=== PATIENT | female | born 1935 | race Caucasian/White ===

== ENCOUNTER 2020-12-04 16:16 | Emergency (ER) | payer MEDICARE, OTHER ==
--- NOTE | 2020-12-04 16:33 | EDM.PDOC ---
ED HPI GENERAL MEDICAL PROBLEM - General Chief Complaint: Abdominal Pain Stated Complaint: Abdominal Pain Time Seen by Provider: 12/04/20 16:20 Source of Information: Reports: Patient History Limitations: Reports: No Limitations - History of Present Illness INITIAL COMMENTS - FREE TEXT/NARRATIVE: She presents to the emergency department complaining of 9/10 abdominal pain. Pain localizes to the lower quadrants bilaterally does radiate into her lower back. Pain started suddenly about two and a half hours prior to arrival. She did take some ibuprofen and does not feel that it helped. Normal bowel movement this morning. No history of blood in the stool. No nausea or vomiting. No fever or chills. Pain does not change with position. No recent change in her diet. No history of previous similar problems. She takes thyroid replacement. No other regular medications. She denies any other significant underlying medical problems. She denies any recent illness. - Related Data Allergies Allergy/AdvReac Type Severity Reaction Status Date / Time Sulfa (Sulfonamide Allergy Other Verified 10/05/17 13:06 Antibiotics) ED ROS GENERAL - Review of Systems Review Of Systems: See Below Constitutional: Denies: Fever, Chills HEENT: Denies: Nose Pain, Rhinitis, Sinus Problem, Throat Swelling Respiratory: Denies: Shortness of Breath, Cough Cardiovascular: Denies: Chest Pain, Palpitations GI/Abdominal: Reports: Abdominal Pain. Denies: Black Stool, Bloody Stool, Constipation, Diarrhea, Nausea, Vomiting : Denies: Discharge, Dysuria, Flank Pain, Frequency, Hematuria Neurological: Denies: Confusion, Dizziness Psychiatric: Denies: Anxiety, Depression ED EXAM, GENERAL - Physical Exam Exam: See Below Exam Limited By: No Limitations General Appearance: Alert, WD/WN, Mild Distress Nose: Normal Inspection, Normal Mucosa Throat/Mouth: Normal Inspection, Normal Lips, Normal Oropharynx Head: Atraumatic, Normocephalic Neck: Normal Inspection. No: Lymphadenopathy (L), Lymphadenopathy (R) Respiratory/Chest: No Respiratory Distress, Lungs Clear, Normal Breath Sounds Cardiovascular: Regular Rate, Rhythm, No Murmur GI/Abdominal: Other (Mild distention. Bowel sounds are present but decreased throughout.). No: Guarding, Rebound, Tender Neurological: Alert, Oriented Psychiatric: Normal Affect, Normal Mood Course - Vital Signs Text/Narrative:: Patient continued to have significant pain throughout her stay in the emergency department. She was given 2 doses of morphine 4 mg IV with inadequate control and then 0.5 mg of Dilaudid with improved control. CT scan was done and showed a probable small bowel instruction. Will transfer to [facility] for surgical evaluation. Last Recorded V/S: Last Vital Signs Temp 36.4 C 12/04/20 16:30 Pulse 71 12/04/20 18:03 Resp 18 12/04/20 18:03 BP 189/71 H 12/04/20 18:03 Pulse Ox 98 12/04/20 18:03 - Orders/Labs/Meds Orders: Active Orders 24 hr Category Date Time Status Abdomen Pelvis w Cont [CT] Stat Exams 12/04/20 16:30 Taken Sodium Chloride 0.9% [Normal Saline] 1,000 ml Med 12/04/20 17:15 Active IV ASDIRECTED Medication Orders Sodium Chloride (Normal Saline) 1,000 mls @ 999 mls/hr IV ASDIRECTED PAT Last Admin: 12/04/20 17:15 Dose: 999 mls/hr Documented by: KEISHA Labs: Laboratory Tests 12/04/20 12/04/20 12/04/20 Range/Units 16:40 16:40 18:10 WBC 8.5 (4.0-10.2) K/uL RBC 4.91 (3.77-5.09) M/uL Hgb 14.7 D (11.7-15.5) g/dL Hct 43.4 (34.0-46.0) % MCV 88.4 (84.0-98.0) fL MCH 29.9 (28.2-33.3) pg MCHC 33.9 (31.7-36.0) g/dL RDW 14.0 (11.2-14.1) % Plt Count 224 (150-350) K/uL Neut % (Auto) 81.3 H (45.0-80.0) % Lymph % (Auto) 12.4 (10.0-50.0) % [place] % (Auto) 5.6 (2.0-14.0) % Eos % (Auto) 0.5 (0.0-5.0) % Baso % (Auto) 0.2 (0.0-2.0) % Neut # (Auto) 6.94 (1.40-7.00) K/uL Lymph # (Auto) 1.06 (0.50-3.50) K/uL [place] # (Auto) 0.48 (0.00-1.00) K/uL Eos # (Auto) 0.04 (0.00-0.50) K/uL Baso # (Auto) 0.02 (0.00-0.20) K/uL Sodium 138 (136-145) mmol/L Potassium 3.9 (3.5-5.1) mmol/L Chloride 103 (98-107) mmol/L Carbon Dioxide 27.3 (21.0-32.0) mmol/L Anion Gap 7.7 (7-15) meq/L BUN 19 H (7-18) mg/dL Creatinine 0.86 (0.51-1.17) mg/dL Est Cr Clr Drug Dosing TNP Estimated GFR (MDRD) > 60 mL/min Glucose 157 H (70-99) mg/dL Calcium 8.6 (8.5-10.1) mg/dL Total Bilirubin 0.5 (0.2-1.0) mg/dL AST 24 (15-37) U/L ALT 20 (12-78) U/L Alkaline Phosphatase 61 (46-116) IU/L Total Protein 7.1 (6.4-8.2) g/dL Albumin 3.6 (3.4-5.0) g/dL Amylase 46 (25-115) U/L Lipase 91 (73-393) U/L Specimen Type Urinblad Urine Color Yellow Urine Appearance Clear Urine pH 7.5 (5.0-9.0) Ur Specific [place] 1.020 (1.005-1.030) Urine Protein Negative (NEGATIVE) mg/dL Urine Glucose (UA) 100 H (NEGATIVE) mg/dL Urine Ketones Negative (NEGATIVE) mg/dL Urine Occult Blood Trace-intact H (NEGATIVE) Urine Nitrite Negative (NEGATIVE) Urine Bilirubin Negative (NEGATIVE) Urine Urobilinogen 0.2 (0.2-1.0) E.U./dL Ur Leukocyte Esterase Negative (NEGATIVE) Urine RBC 0-5 /HPF Urine WBC 0-5 /HPF Ur Epithelial Cells Rare /LPF Urine Bacteria Rare (NONE TO FEW) /HPF Meds: Medications Generic Name Dose Route Start Last Admin Trade Name Freq PRN Reason Stop Dose Admin Sodium Chloride 1,000 mls @ 999 mls/hr 12/04/20 17:15 12/04/20 17:15 Normal Saline IV 999 mls/hr ASDIRECTED PAT Administration Discontinued Medications Generic Name Dose Route Start Last Admin Trade Name Lyndon PRN Reason Stop Dose Admin Hydromorphone HCl 0.5 mg 12/04/20 17:28 12/04/20 17:29 Hydromorphone 0.5 Mg/0.5 Ml Syringe IM 12/04/20 17:29 0.5 mg ONETIME ONE Administration Iopamidol 100 ml 12/04/20 17:04 12/04/20 17:52 Iopamidol 612 Mg/Ml 100 Ml Bottle IVPUSH 12/04/20 17:05 100 ml ONETIME STA Administration Iopamidol Confirm 12/04/20 17:11 Iopamidol 612 Mg/Ml 100 Ml Bottle Administered 12/04/20 17:12 Dose 100 ml .ROUTE .STK-MED ONE Morphine Sulfate 4 mg 12/04/20 16:49 12/04/20 17:19 Morphine 4 Mg/Ml Syringe IVPUSH 12/04/20 16:50 4 mg ONETIME ONE Administration Morphine Sulfate 4 mg 12/04/20 17:12 12/04/20 17:16 Morphine 4 Mg/Ml Syringe IVPUSH 12/04/20 17:13 4 mg ONETIME ONE Administration Ondansetron HCl Confirm 12/04/20 16:59 12/04/20 17:05 Ondansetron 4 Mg/2 Ml Sdv Administered 12/04/20 17:00 4 mg Dose Administration 4 mg .ROUTE .STK-MED ONE - Radiology Interpretation Free Text/Narrative:: CT scan shows apparent small bowel obstruction. No free air. Small amount of ascites. Hiatal hernia. Departure - Departure Time of Disposition: 18:51 Disposition: DC/Tfer to Acute Hospital 02 Condition: Fair Clinical Impression: Small bowel obstruction - Discharge Information *PRESCRIPTION DRUG MONITORING PROGRAM REVIEWED*: Not Applicable *COPY OF PRESCRIPTION DRUG MONITORING REPORT IN PATIENT FABRICE: Not Applicable Referrals: Deedee Zamarripa NP [Primary Care Provider] - Forms: ED Department Discharge Care Plan Goals: Transfer to [facility] Sepsis Event Note (ED) - Focused Exam Vital Signs: Vital Signs Temp Pulse Resp BP Pulse Ox 12/04/20 18:03 71 18 189/71 H 98 12/04/20 17:30 70 18 191/83 H 98 12/04/20 17:00 65 18 196/76 H 97 12/04/20 16:30 36.4 C 66 18 191/83 H 98 - Problem List & Annotations (1) Small bowel obstruction SNOMED Code(s): 911937187 Code(s): K56.609 - UNSP INTESTNL OBST, UNSP TO PARTIAL VERSUS COMPLETE OBST Status: Acute Current Visit: Yes - My Orders Last 24 Hours: My Active Orders 12/04/20 16:30 Abdomen Pelvis w Cont [CT] Stat 12/04/20 17:15 Sodium Chloride 0.9% [Normal Saline] 1,000 ml IV ASDIRECTED - Assessment/Plan Last 24 Hours: My Active Orders 12/04/20 16:30 Abdomen Pelvis w Cont [CT] Stat 12/04/20 17:15 Sodium Chloride 0.9% [Normal Saline] 1,000 ml IV ASDIRECTED
[2020-12-04] MEDS ORDERED: Morphine 4 MG/ML Syringe IVPUSH ONE ×2 (16:49→17:12)
[2020-12-04] MEDS ORDERED: Ondansetron 4 MG/2 ML SDV ONE (16:59)
[2020-12-04 17:04] LABS: ANION GAP 7.7 meq/L (7-15); CHLORIDE,CL 103 mmol/L (98-107); SODIUM,NA 138 mmol/L (136-145)
[2020-12-04] MEDS ORDERED: Iopamidol 612 MG/ML 100 ML Bottle IVPUSH STA (17:04)
[2020-12-04] MEDS ORDERED: Iopamidol 612 MG/ML 100 ML Bottle ONE (17:11)
[2020-12-04] MEDS ORDERED: Sodium Chloride 0.9% 1,000 ML IV SCH (17:15)
[2020-12-04] MEDS ORDERED: HYDROmorphone 0.5 MG/0.5 ML Syringe IVPUSH ONE ×3 (17:25→19:12)
[2020-12-04] MEDS: HYDROmorphone 0.5 MG/0.5 ML Syringe IM ONE ×2 (17:29→20:12)
== END 2020-12-04 21:03 ==
LOC: LL.ED 16:16
DX: K56.609 Unspecified intestinal obstruction, unspecified as to partial versus complete obstruction (principal); Z88.2 Allergy status to sulfonamides
CPT/HCPCS: 36415; 74177; 80053; 81001; 82150; 83690; 85025; 96374; 96375; 96376; 99284; 99285-25; J1170; J2270; J2405; J7030; Q9967